=== PATIENT | female | born 1960 | race Caucasian/White ===

== ENCOUNTER 2018-06-09 16:51 | Emergency (ER) | payer BC ==
--- NOTE | 2018-06-09 17:30 | UC ---
Throat Pain/Nasal Saul HPI - HPI Summary HPI Summary: 58 yo female presents with sinus pain/pressure/congestion and fatigue for the last 3 days. Today her sinus pain increased to her left maxillary area and she developed upper teeth pain. She has not been taking anything OTC. She has also been having intermittent RUQ pain for the last 2-3 weeks. Will randomly have a sharp pain in this area that lasts a few seconds and then resolves. No change with eating or drinking. Denies fever, chills, sore throat, SOB, chest pain, n/v/d/c, dysuria. 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 - History of Current Complaint Chief Complaint: UCRespiratory Stated Complaint: SINUS PAIN,CONGESTION Time Seen by Provider: 06/09/18 17:30 Hx Obtained From: Patient Onset/Duration: Gradual Onset Severity: Moderate Pain Intensity: 5 Pain Scale Used: 0-10 Numeric - Allergies/Home Medications Allergies/Adverse Reactions: Allergies Allergy/AdvReac Type Severity Reaction Status Date / Time Adhesive Tape [Paper Tape] Allergy Rash Verified 06/09/18 17:22 aspirin Allergy Unknown Verified 06/09/18 17:22 Reaction Details bupropion Allergy Rash Verified 06/09/18 17:22 ibuprofen Allergy Edema Verified 06/09/18 17:22 latex Allergy Rash Verified 06/09/18 17:22 metoprolol Allergy Swelling Verified 06/09/18 17:22 neomycin Allergy Rash Verified 06/09/18 17:22 thimerosal Allergy Swelling Verified 06/09/18 17:22 losartan AdvReac Joint Pain Verified 06/09/18 17:22 environmental Allergy Runny Nose Uncoded 02/26/18 14:47 PMH/Surg Hx/FS Hx/Imm Hx - Additional Past Medical History Additional PMH: Chronic pain Seasonal allergies Endocrine History: Hypothyroidism Respiratory History: Asthma GI/ History: Gastroesophageal Reflux Psychological History: Anxiety, Depression - Surgical History Surgical History: Yes Surgery Procedure, Year, and Place: HYSTERECTOMY, BACK FUSION 20 YEARS AGO, BILATERAL HEELS- CALCIFIACTION BUILD-UP, LEFT WRIST, HERNIA, WISDOM TEETH, KIDNEY BIOPSY,. SPLENECTOMY - AUG 2013--CORRECTIVE VISION LASER SURGERY - Family History Known Family History: Positive: Hypertension, Renal Disease - Social History Occupation: Employed Full-time Lives: With Family Alcohol Use: Rare Substance Use Type: None Smoking Status (MU): Never Smoked Tobacco - Immunization History Most Recent Tetanus Shot: 2011 Review of Systems Constitutional: Negative Skin: Negative Eyes: Negative ENT: Sinus Congestion, Sinus Pain/Tenderness Respiratory: Negative Cardiovascular: Negative Gastrointestinal: Abdominal Pain Neurovascular: Negative Neurological: Negative Psychological: Negative All Other Systems Reviewed And Are Negative: Yes Physical Exam - Summary Physical Exam Summary: GENERAL: NAD. WDWN. No pain distress. SKIN: No rashes, sores, lesions, or open wounds. HEENT: Head: AT/NC Eyes: EOM intact. Conjunctiva clear without inflammation or discharge. Ears: Hearing grossly normal. TMs intact, no bulging, erythema, or edema. Nose: Nasal mucosa mildly swollen and erythematous with yellow/ clear discharge. TTP maxillary and frontal sinus L>R Throat: Posterior oropharynx without exudates, erythema, or tonsillar enlargement. Uvula midline. NECK: Supple. Nontender. No lymphadenopathy. CHEST: CTAB. No r/r/w. No accessory muscle use. Breathing comfortably and in no distress. CV: RRR. Without m/r/g. Pulses intact. ABDOMEN: Soft. NTTP. No distention or guarding. No CVA tenderness. Bowel sounds present NEURO: Alert. PSYCH: Age appropriate behavior. Triage Information Reviewed: Yes Vital Signs: Initial Vital Signs Temp 97.9 F 06/09/18 17:12 Pulse 59 06/09/18 17:12 Resp 16 06/09/18 17:12 BP 148/100 06/09/18 17:12 Pulse Ox 98 06/09/18 17:12 Vital Signs Reviewed: Yes Throat Pain/Nasal Course/Dx - Course Course Of Treatment: Suspect sinusitis. Regarding her RUQ pain - she could be suffering from cholelithiasis. I advised her to f/u with her PCP for further evaluation if her symptoms persist - Differential Dx/Diagnosis Provider Diagnoses: Sinusitis. RUQ pain Discharge - Sign-Out/Discharge Documenting (check all that apply): Patient Departure All imaging exams completed and their final reports reviewed: No Studies - Discharge Plan Condition: Stable Disposition: HOME Prescriptions: Amoxicillin/Clavulanate TAB* [Augmentin TAB 875*] 875 mg PO BID #20 tab Patient Education Materials: Sinusitis (ED) Referrals: David Simental MD [Primary Care Provider] - Additional Instructions: If you develop a fever, shortness of breath, chest pain, new or worsening symptoms - please call your PCP or go to the ED. Your blood pressure was high at todays visit. Please see your primary provider within 4 weeks for recheck and re-evaluation. - Billing Disposition and Condition Condition: STABLE Disposition: Home - Attestation Statements Provider Attestation: Per institutional requirements, I have reviewed the chart, however, I was not consulted specifically or made aware of this patient by the midlevel provider. I did not personally evaluate, interact with , or disposition this patient.
[2018-06-09 17:49] VITALS: BP 142/80
== END 2018-06-09 17:45 | disposition home or self-care (01) ==
LOC: UCEAST 16:51
DX: J32.9 Chronic sinusitis, unspecified (principal); R10.11 Right upper quadrant pain; J45.909 Unspecified asthma, uncomplicated; Z88.6 Allergy status to analgesic agent; Z88.8 Allergy status to other drugs, medicaments and biological substances; Z91.048 Other nonmedicinal substance allergy status; Z88.1 Allergy status to other antibiotic agents; Z91.040 Latex allergy status; Z91.09 Other allergy status, other than to drugs and biological substances
CPT/HCPCS: 99212; G0463

== ENCOUNTER 2018-12-13 15:07 | Emergency (ER) | payer BC, OTHER ==
--- OUTSIDE RECORDS SUMMARY | 2018-12-13 15:55 | XMS REPORT | Continuity of Care Document ---
:1960 External Reference #:[id number] Author Name Vasiliy Perez MD Address [address] [place] [address] Care Team Providers Name Role Phone Marina Ceballos M.D. Care Team Information [employer] Unavailable David Simental M.D. Primary Care Physician Unavailable Payers Date Identification Numbers Payment Provider Subscriber Effective: Policy Number: [id number] [facility] Nikolas Tim 2018 MD PayID: [id number] [address] [address] [place] [address] Effective: 2018 Policy Number: [id number] [facility] Benefit Plan Dania Coughlin PayID: [id number] [place] [address] Advance Directives Description No Information Available Problems Description No Information Family History Date Family Member(s) Observation Comments General Allergies General Asthma General Cancer General Diabetes General Heart Attack General Heart Disease General Thyroid Disease General Prostate Cancer General Hearing Loss Father Asthma Father Allergies Onset: (age 84 Years) Father Prostate Cancer Onset: (age 70 Years) Father Diabetes Father Hearing Loss Onset: (age 80 Years) Father Heart Attack Father Heart Disease Onset: (age 78 Years) Mother Cancer Onset: (age 60 Years) Mother Hearing Loss Mother Thyroid Disease First Sister Allergies Social History Type Date Description Comments Sex Unknown Occupation Professor Tobacco Use Start: Unknown Never Smoked Cigarettes Tobacco Use Start: Unknown Never Smoked Cigars Tobacco Use Start: Unknown Never Smoked A Pipe Smokeless Tobacco Never Used Smokeless Tobacco ETOH Use Currently occasionally consumes alcohol Allergies, Adverse Reactions, Alerts Date Description Reaction Status Severity Comments 11/26/2018 Ibuprofen Active facial swelling 11/26/2018 Aspirin Active clotting issues 11/26/2018 Bupropion Active rash, swelling hands 11/26/2018 Losartan Active redness and swelling 11/26/2018 Metoprolol Active redness and swelling 11/26/2018 Latex Active rash 11/26/2018 Paper Tape Active rash Medications Medication Date Status Form Strength Qnty SIG Indications Ordering Provider Baclofen 00/00 Active Tablets 10mg Take One Unknown /0000 Tablet By Mouth Every Evening as Needed Levothyroxine 0000 Active Tablets 150mcg Take One Unknown Sodium /0000 Tablet By Mouth Every Day Zolpidem Tartrate Active Tablets ER 6.25mg Take 1 2 Unknown ER /0000 Tablets By Mouth AT Bedtime as Needed For Sleep Maximum Daily Dose 2 Gabapentin Active Capsules 300mg Take Two Unknown /0000 Capsules By Mouth AT Bedtime Symbicort Active Aerosol 160-4.5mc Inhale Two Unknown /0000 g/Act Puffs By Mouth Twice A Day Rinse Mouth After Use Montelukast Active Tablets 10mg Take One Unknown Sodium /0000 Tablet By Mouth Every Night AT Bedtime Mometasone Active Suspension 50mcg/Act [place] Two Unknown Furoate /0000 Sprays In Each Nostril Daily Hydroxychloroquin Active Tablets 200mg Take Two Unknown e Sulfate /0000 Tablets By Mouth Daily Topiramate Active Tablets 100mg Take One Unknown /0000 Tablet By Mouth Twice A Day Potassium Active Tablets ER 10Meq Take Two Unknown Chloride ER /0000 Tablets By Mouth Twice A Day Sertraline HCL Active Tablets 50mg Take Four Unknown /0000 Tablets By Mouth Every Day as Directed Maximum Daily Dose Four Tablets Alprazolam Active Tablets 0.25mg Take 1 Unknown /0000 Tablet By Mouth Up To Two Times A Day as Needed For Anxiety Maximum Daily Dose 2 Tablets Zyrtec Allergy Active Tablets 10mg 1 by mouth Unknown /0000 every day Azelastine HCL Active Solution 0.1% 2 sprays Unknown (Nasal) /0000 into each nostril 2 times per day Fluticasone Nasal Active 50mcg 2 sprays Unknown [place] /0000 each side twice a day Botox Active Solution 100Unit Q 3 months Unknown /0000 Rec Vitamin D3 Active Tablets 2000Unit daily Unknown /0000 Magnesium Active Tablets 400mg daily Unknown /0000 Calcium 1000 + D Active Tablets 1000-800m daily Unknown /0000 g-Unit Hydrocodone Active Tablets 5-325mg qid prn Unknown Bitartrate/Acetam / inophen Omeprazole Active Capsules DR 20mg prn Unknown / Ventolin HFA Active Aerosol 108(90Bas Q4H prn Unknown /0000 e) mcg/Act Epipen 2-Jaren Active Solution 0.3mg/0.3 inject as Auto-Inject ML needed for allergic reaction Amoxicillin Active Tablets 500mg 4 with Unknown /0000 dental appointmen t Immunizations Description No Information Available Vital Signs Date Vital Result Comment 11/26/2018 10:59am Weight 161.00 lb Weight 73.030 kg Height 62.5 inches 5'2.50" Height in cm's 158.8 cm BMI (Body Mass Index) 29.0 kg/m2 Results Description No Information Available Procedures Date Code Description Status 11/26/2018 09067 Tympanometry Completed 11/26/2018 24705 Comprehensive Audiogram Completed Encounters Type Date Location Provider Dx Diagnosis Office Visit 11/26/2018 [place] H93.13 Tinnitus, 10:45a 09/08/07 MD Ana bilateral H90.3 Sensorineural hearing loss, bilateral Plan of Treatment No Information Available
[2018-12-13 16:08] VITALS: BP 124/88
--- NOTE | 2018-12-13 16:17 | UC ---
Respiratory Complaint HPI - HPI Summary HPI Summary: 58 y/o female presents to the urgent care c/o C/O PRODUCTIVE COUGH OF GREEN PHLEGM TODAY. PT STATES SHE STARTED NOT FEELING WELL ON 12/11/18. PT HAS HAD SPLENECTOMY. ALSO C/O POSTERIOR NECK/UPPER BACK/ SHOULDER PAIN AND HEADACHE. - History of Current Complaint Chief Complaint: UCRespiratory Stated Complaint: COUGH Time Seen by Provider: 12/13/18 16:15 Hx Obtained From: Patient Pain Intensity: 5 - Allergies/Home Medications Allergies/Adverse Reactions: Allergies Allergy/AdvReac Type Severity Reaction Status Date / Time Adhesive Tape [Paper Tape] Allergy Rash Verified 12/13/18 16:08 aspirin Allergy Unknown Verified 12/13/18 16:08 Reaction Details bupropion Allergy Rash Verified 12/13/18 16:08 ibuprofen Allergy Edema Verified 12/13/18 16:08 latex Allergy Rash Verified 12/13/18 16:08 metoprolol Allergy Swelling Verified 12/13/18 16:08 neomycin Allergy Rash Verified 12/13/18 16:08 thimerosal Allergy Swelling Verified 12/13/18 16:08 losartan AdvReac Joint Pain Verified 12/13/18 16:08 environmental Allergy Runny Nose Uncoded 12/13/18 16:08 Home Medications: Home Medications Acetaminophen [Non-Aspirin Extra Strength] 1,000 - 1,500 mg PO PRN 12/13/18 [ History] Gabapentin CAP(*) [Neurontin 300 CAP(*)] 300 mg PO DAILY 12/13/18 [History Confirmed 12/13/18] guaiFENesin ER TAB [Mucinex*] 600 mg PO ONCE PRN 12/13/18 [History Confirmed 03/26] PMH/Surg Hx/FS Hx/Imm Hx - Surgical History Surgical History: Yes Surgery Procedure, Year, and Place: HYSTERECTOMY, BACK FUSION 20 YEARS AGO, BILATERAL HEELS- CALCIFIACTION BUILD-UP, LEFT WRIST, HERNIA, WISDOM TEETH, KIDNEY BIOPSY,. SPLENECTOMY - AUG 2013--CORRECTIVE VISION LASER SURGERY - Family History Known Family History: Positive: Hypertension, Renal Disease - Social History Alcohol Use: Rare Substance Use Type: None Smoking Status (MU): Never Smoked Tobacco - Immunization History Most Recent Tetanus Shot: 2011 Physical Exam Vital Signs: Initial Vital Signs Temp 99 F 12/13/18 16:03 Pulse 75 04/07/19 16:03 Resp 16 12/13/18 16:03 BP 124/88 12/13/18 16:03 Pulse Ox 98 12/13/18 16:03 Respiratory Course/Dx - Differential Dx/Diagnosis Differential Diagnosis/HQI/PQRI: Asthma, Bronchitis, Exacerbation Of COPD, Influenza, Lower Resp Infection, Sinusitis, Other - pneumonia Provider Diagnosis: Acute bronchitis, Wheezing Discharge - Discharge Plan Condition: Stable Disposition: HOME Prescriptions: Benzonatate CAP* [Tessalon 100 MG CAP*] 100 mg PO TID PRN #20 cap PRN Reason: Cough DOXYcycline CAP(*) [DOXYcycline 100MG CAP(*)] 100 mg PO BID #14 cap Patient Education Materials: Acute Bronchitis (ED), Wheezing (ED) Forms: *Work Release Referrals: David Simental MD [Primary Care Provider] - 2 Days Additional Instructions: 1-Please take full course of antibiotic to avoid resistance. Take culturelle to protect your GI system 2-Take Tessalon PO tabs as directed and use the albuterol inhaler w/ aerochamber to alleviate cough and mild wheezing. Increase fluid intake, rest and eat well. 3- If symptoms do not improve or worsen or your develop SOB with fever and severe wheezing please go immediately to the ER further evaluation and treatment. 4- F/u with your PCP in 2-3 days for further management on your Asthma - Billing Disposition and Condition Condition: STABLE Disposition: Home
[2018-12-13] MEDS ORDERED: Albuterol/Ipratropium NEB.SOL* Albuterol 2.5 MG/Ipratropium 0.5 MG 3 ML INH ONE (16:45)
[2018-12-13 17:16] LABS: Influenza A Molecular NEGATIVE (Negative); Influenza B Molecular NEGATIVE (Negative)
[2018-12-13] MEDS ORDERED: DOXYcycline CAP(*) 100 MG PO ONE (17:37)
[2018-12-13] MEDS ORDERED: Benzonatate CAP* 100 MG PO ONE ×2 (17:37→17:52)
== END 2018-12-13 18:00 | disposition home or self-care (01) ==
LOC: UCEAST 15:07
DX: J20.9 Acute bronchitis, unspecified (principal); R06.2 Wheezing; Z91.09 Other allergy status, other than to drugs and biological substances; Z88.8 Allergy status to other drugs, medicaments and biological substances; Z91.040 Latex allergy status; Z88.1 Allergy status to other antibiotic agents
CPT/HCPCS: 71046; 99213; A9270-GY; G0463

== ENCOUNTER 2020-07-17 09:06 | Inpatient (IN) ==
[~2020-07-17 09:06] MED LIST: Buffered Lidocaine 1% SYRIN 1 ml INTRADERM ONE; Dexamethasone IV 4 MG/ML VIAL 1 ml VIAL ONE; Famotidine IV 10 MG/ML 2 ml VIAL (20 mg) IV ONE; Lactated Ringers 1000 ml BAG 1,000 ML IV SCH; Lidocaine 2% PF 5 ML VIAL ONE; Midazolam 2 mg/2 ml VIAL 1 mg/ml 2 ml VIAL (2 mg) ONE; Ondansetron 4 mg VIAL 2 MG/ML 2 ml VIAL ONE; Propofol 10 MG/ML 20 ML BTL ONE; Rocuronium 50 mg VIAL 10 mg/ml 5 ml VIAL (50 mg) ONE; Sodium Citrate/Citric Acid LIQ 15 ML UDC PO ONE; fentaNYL 100 mcg/2 ml 50 MCG/ML VIAL ONE
[2020-07-17] MEDS ORDERED: Sodium Citrate/Citric Acid LIQ 15 ML UDC ONE (09:20)
[2020-07-17] MEDS ORDERED: ceFAZolin 2 GM PREMIX 2 GM/50 ML BAG ONE (09:20)
[2020-07-17] MEDS ORDERED: Famotidine IV 10 MG/ML 2 ml VIAL (20 mg) ONE (09:20)
[2020-07-17] MEDS ORDERED: Propofol 0 MG/0 ML BTL ONE (09:40)
[2020-07-17] MEDS ORDERED: ROPIVACAINE 5 MG/ML 30 ML BTL (0.5%) ONE (09:49)
[2020-07-17] MEDS ORDERED: Lidocaine 1% MPF 5 ML VIAL ONE (09:50)
[2020-07-17] MEDS ORDERED: Dexamethasone IV 4 MG/ML VIAL 1 ml VIAL ONE (09:51)
[2020-07-17 10:00] LABS: ABS Basophils 0.1 10^3/ul (0-0.2); ABS Eosinophils 0.5 10^3/ul (0-0.6); ABS Lymphocytes 1.8 10^3/ul (1.0-4.8); ABS Monocytes 0.5 10^3/ul (0-0.8); ABS Neutrophils 2.5 10^3/ul (1.5-7.7); Eosinophil % 8.7 %; Hematocrit 42 % (35-47); Hemoglobin 14.2 g/dL (12.0-16.0); Lymphocyte % 33.3 %; Mean Corpuscular HGB Conc 34 g/dL (31-36); Mean Corpuscular Hemoglobin 32 pg (27-31); Mean Corpuscular Volume 94 fL (80-97); Mean Platelet Volume 8.5 fL (7.4-10.4); Nucleated Red Blood Cells % 0.1; Platelet Count 252 10^3/uL (150-450); Red Blood Count 4.44 10^6 /uL (3.70-4.87); Red Cell Distribution Width 14 % (10-15); White Blood Count 5.3 10^3/uL (3.5-10.8)
[2020-07-17] MEDS ORDERED: [UNRECOGNIZED DRUG - OTHER] IV ONE ×2 (10:00→14:10)
[2020-07-17] MEDS ORDERED: [UNRECOGNIZED DRUG - OTHER] IV ONE (10:00)
[2020-07-17] MEDS ORDERED: ANTIHEMOPHILIC FACTOR IV ONE ×3 (10:00→14:10)
[2020-07-17 10:11] LABS: Activated Partial Thrombo Time 36.2 seconds (26.0-38.0); INR 0.99 (0.82-1.09)
[2020-07-17 10:39] LABS: Calcium 9.1 mg/dL (8.6-10.3); EGFR African American 59.2 (>60); Potassium 3.9 mmol/L (3.5-5.0)
[2020-07-17] MEDS ORDERED: Succinylcholine 200 mg VIAL 20 mg/ml 10 ml VIAL (200 mg) ONE (11:28)
[2020-07-17] MEDS ORDERED: Bupivacaine 0.25% EPI 200,000 30 ML SDV ONE (11:35)
[2020-07-17] MEDS ORDERED: HYDROmorphone 1 MG/1 ML SYRINGE IV PRN (12:22)
[2020-07-17] MEDS ORDERED: Acetaminophen IV 1 GM/100ML 1,000 MG/100 ML VIAL IVPB PRN (12:22)
[2020-07-17] MEDS ORDERED: fentaNYL 100 mcg/2 ml 50 MCG/ML VIAL IV PRN (12:22)
[2020-07-17] MEDS ORDERED: Ondansetron 4 mg VIAL 2 MG/ML 2 ml VIAL IV PRN ×2 (12:22→13:39)
[2020-07-17] MEDS ORDERED: Naloxone 0.4 mg VIAL 0.4 mg/ml 1 ml VIAL IV PRN (12:22)
[2020-07-17] MEDS ORDERED: Ondansetron ODT 4 mg TAB 4 MG TAB PO PRN (13:39)
[2020-07-17] MEDS ORDERED: diPHENhydraMINE IV 50 MG/ML 1 ml VIAL (BENADRYL) IV PRN (13:39)
[2020-07-17] MEDS ORDERED: Magnesium Hydroxide LIQ 30 ML UDC PO PRN (13:39)
[2020-07-17] MEDS ORDERED: Lactulose 30 ml UDC PO PRN (13:39)
[2020-07-17] MEDS ORDERED: diPHENhydraMINE 25 mg TAB PO PRN (13:39)
[2020-07-17] MEDS ORDERED: oxyCODONE/Acetamin 5/325 mg TAB PO PRN (13:39)
[2020-07-17] MEDS ORDERED: Morphine 2 MG/ML SYRINGE IV PRN (13:39)
[2020-07-17] MEDS ORDERED: Lactated Ringers 1000 ml BAG 1,000 ML IV SCH (14:00)
[2020-07-17] MEDS ORDERED: Albuterol HFA INHALER 8 gm MDI INH PRN (15:33)
[2020-07-17] MEDS: Mometasone/Formoter 200/5 MDI INH SCH (19:56)
[2020-07-17] MEDS: Potassium Chlor 20 meq TAB.ER PO SCH (20:40)
[2020-07-17] MEDS: oxyCODONE/Acetamin 5/325 mg TAB PO PRN (20:41)
[2020-07-17] MEDS: Magnesium Hydroxide LIQ 30 ML UDC PO SCH (20:47)
[2020-07-17] MEDS: ANTIHEMOPHILIC FACTOR IV SCH ×2 (22:06→22:10)
[2020-07-17] MEDS: [UNRECOGNIZED DRUG - OTHER] IV SCH (22:06)
[2020-07-17] MEDS: [UNRECOGNIZED DRUG - OTHER] IV SCH (22:10)
[2020-07-18] MEDS: oxyCODONE/Acetamin 5/325 mg TAB PO PRN ×4 (05:34→23:23)
[2020-07-18 06:33] LABS: ABS Lymphocytes 2.1 10^3/ul (1.0-4.8); ABS Neutrophils 7.5 10^3/ul (1.5-7.7); Eosinophil % 0.1 %; Hematocrit 37 % (35-47); Hemoglobin 12.6 g/dL (12.0-16.0); Lymphocyte % 19.5 %; Mean Corpuscular HGB Conc 34 g/dL (31-36); Mean Corpuscular Hemoglobin 33 pg (27-31); Mean Corpuscular Volume 95 fL (80-97); Mean Platelet Volume 8.8 fL (7.4-10.4); Platelet Count 211 10^3/uL (150-450); Red Blood Count 3.85 10^6 /uL (3.70-4.87); Red Cell Distribution Width 14 % (10-15); White Blood Count 10.6 10^3/uL (3.5-10.8)
[2020-07-18 06:51] LABS: BUN/Creatinine Ratio 15.2 (8-20); Calcium 8.6 mg/dL (8.6-10.3); EGFR African American 65.1 (>60); EGFR Non-African American 53.8 (>60); Potassium 3.9 mmol/L (3.5-5.0)
[2020-07-18] MEDS: CALCIUM VITAMIN D3 VITAMIN K PO SCH (07:54)
[2020-07-18] MEDS: Magnesium Hydroxide LIQ 30 ML UDC PO SCH ×2 (07:55→22:04)
[2020-07-18] MEDS: Vitamin THERAPEUTIC TAB PO SCH (08:52)
[2020-07-18] MEDS: Potassium Chlor 20 meq TAB.ER PO SCH ×2 (08:52→22:03)
[2020-07-18] MEDS: Mometasone/Formoter 200/5 MDI INH SCH ×2 (08:54→19:41)
[2020-07-18] MEDS: ANTIHEMOPHILIC FACTOR IV SCH ×4 (10:42→22:56)
[2020-07-18] MEDS: [UNRECOGNIZED DRUG - OTHER] IV SCH ×2 (10:42→22:53)
[2020-07-18] MEDS: [UNRECOGNIZED DRUG - OTHER] IV SCH ×2 (10:53→22:56)
[2020-07-18] MEDS ORDERED: Buffered Lidocaine 1% SYRIN 1 ml INTRADERM ONE (14:02)
[2020-07-19 06:28] LABS: Hematocrit 36 % (35-47); Mean Platelet Volume 8.7 fL (7.4-10.4); Platelet Count 204 10^3/uL (150-450)
[2020-07-19] MEDS: oxyCODONE/Acetamin 5/325 mg TAB PO PRN ×3 (06:53→20:59)
[2020-07-19] MEDS: CALCIUM VITAMIN D3 VITAMIN K PO SCH (09:35)
[2020-07-19] MEDS: Potassium Chlor 20 meq TAB.ER PO SCH ×2 (09:40→20:59)
[2020-07-19] MEDS: Magnesium Hydroxide LIQ 30 ML UDC PO SCH ×2 (09:40→20:59)
[2020-07-19] MEDS: Mometasone/Formoter 200/5 MDI INH SCH ×2 (09:41→19:22)
[2020-07-19] MEDS: Vitamin THERAPEUTIC TAB PO SCH (09:41)
[2020-07-19] MEDS: [UNRECOGNIZED DRUG - OTHER] IV SCH (10:39)
[2020-07-19] MEDS: ANTIHEMOPHILIC FACTOR IV SCH ×2 (10:39→10:40)
[2020-07-19] MEDS: [UNRECOGNIZED DRUG - OTHER] IV SCH (10:40)
[2020-07-20] MEDS: oxyCODONE/Acetamin 5/325 mg TAB PO PRN ×2 (04:01→10:05)
[2020-07-20 06:32] LABS: Hematocrit 36 % (35-47); Hemoglobin 12.2 g/dL (12.0-16.0); Mean Platelet Volume 8.7 fL (7.4-10.4); Platelet Count 199 10^3/uL (150-450)
[2020-07-20] MEDS: Mometasone/Formoter 200/5 MDI INH SCH (08:06)
[2020-07-20] MEDS: Potassium Chlor 20 meq TAB.ER PO SCH (08:07)
[2020-07-20] MEDS: Magnesium Hydroxide LIQ 30 ML UDC PO SCH (08:08)
[2020-07-20] MEDS: Vitamin THERAPEUTIC TAB PO SCH (08:08)
[2020-07-20] MEDS: CALCIUM VITAMIN D3 VITAMIN K PO SCH (08:09)
[2020-07-20 09:16] VITALS: BP 133/80
[2020-07-20] MEDS ORDERED: [UNRECOGNIZED DRUG - OTHER] IV SCH (10:00)
[2020-07-20] MEDS ORDERED: ANTIHEMOPHILIC FACTOR IV SCH ×2 (10:00)
[2020-07-20] MEDS ORDERED: [UNRECOGNIZED DRUG - OTHER] IV SCH (10:00)
== END 2020-07-20 13:15 | disposition home health service (06) | DRG 315 ==
LOC: OR 09:06 → SSU 13:39
PROVIDERS: ADMIT Orthopaedic Surgery; ATTEND Orthopaedic Surgery